=== PATIENT | female | born 2005 | race Two or more races ===

== ENCOUNTER 2025-04-14 02:57 | Emergency (ER) | payer MEDICAID, SELFPAY ==
[2025-04-14 02:59] VITALS: PULSE 92; RESP 18; O2SAT 99
[2025-04-14 03:18] VITALS: BP 100/64; PULSE 88; RESP 19; TEMP 36.6; O2SAT 100; BMI 21.6
--- NOTE | 2025-04-14 03:29 | XR_ITS ---
Examination: CT abdomen and pelvis without contrast. Coronal 3-D reconstructions. Sagittal 2-D reconstructions. Date and time of exam: April 14, 2025 at 1649 hours, comparison June 25, 2021 INDICATION: Abdominal pain diarrhea beginning 2 days ago CTDI: vol (mGy): 5.99 DLP: (mGycm): 284 Technique: Axial images of the abdomen have been obtained, 3 mm slice thickness Intravenous contrast material has not been administered. Low dose protocols were performed. One or more of the following dose reduction techniques were used; automated exposure control, adjustment of the mA and/or KV according to patient size, use of iterative reconstruction technique. Findings: No liver or splenic lesion No gallstones No pancreatic mass No renal or ureteral calculi, no hydronephrosis Aorta normal size No bowel obstruction Absent appendix No diverticulitis Prominent right adnexal region including 18 mm cystic mass No definite uterine mass Contracted urinary bladder Osseous structures intact IMPRESSION: Recommend pelvic sonography to assess prominent right adnexa
--- NOTE | 2025-04-14 03:30 | PD.EDRME ---
Rapid Medical Screening Exam E Arrival date/time: 04/14/25 02:57 This is a case of 19-year-old female with no medical history came in in the emergency room due to left-sided abdominal pain radiating to the left flank with nausea vomiting for 2 days worsening of the symptoms thus patient decided to start consult her in the emergency room Chief Complaint: Abdominal Pain Time Seen by Provider: 04/14/25 03:29 Vital signs: Vital Signs Temperature 97.8 F 04/14/25 03:18 Pulse Rate 88 04/14/25 03:18 Respiratory Rate 19 04/14/25 03:18 Blood Pressure 100/64 04/14/25 03:18 Pulse Oximetry (%) 100 04/14/25 03:18 Oxygen Delivery Method Room Air 04/14/25 03:18 Exam: Moderate tenderness on the left lower abdomen and left flank no guarding or rebound no rigidity Clinical Impression: Abdominal pain
[2025-04-14 03:59] LABS: Basophils # (Auto) 0.0 Thou/mm3 (0.0-0.2); Basophils % (Auto) 0 % (0-2.5); Eosinophils # (Auto) 0.1 Thou/mm3 (0.0-0.5); Eosinophils % (Auto) 1 % (0-10); Hematocrit 33.1 % (36.0-46.0); Hemoglobin 11.7 g/dL (12.0-16.0); Immature Granulocytes Auto 0.04 Thou/mm3 (0.00-0.00); Lymphocytes # (Auto) 3.5 Thou/mm3 (1.0-5.0); Lymphocytes % (Auto) 35 % (10-50); Mean Corpuscular HGB Conc 35.3 g/dl (31.0-37.0); Mean Corpuscular Hemoglobin 30.1 pg (25.0-35.0); Mean Corpuscular Volume 85 fL (80-100); Monocytes # (Auto) 0.8 Thou/mm3 (0.0-0.8); Monocytes % (Auto) 8 % (0-12); Neutrophils # (Auto) 5.6 Thou/mm3 (1.8-7.7); Neutrophils % (Auto) 56 % (37-80); Nucleated Red Blood Cell # 0.00 Thou/mm3 (0.00-0.00); Nucleated Red Blood Cell % 0 /100 WBC (0); Platelet Count 292 Thou/mm3 (140-440); RDW Standard Deviation 36.2 fL (36.4-46.3); Red Blood Count 3.89 Miln/mm3 (4.00-5.20); White Blood Count 10.0 Thou/mm3 (4.5-11.0)
[2025-04-14 04:11] LABS: Collection Type, Urine Clean Catch
[2025-04-14 04:17] LABS: HCG Qualitative,Urine Negative
[2025-04-14 04:21] LABS: Bacteria,Urine Rare; Bilirubin,Urine Negative (Negative); Blood,Urine Negative (Negative); Clarity,Urine Clear (Clear/Hazy); Color,Urine Yellow (Lt Yel-Yel); Glucose, Urine Negative (Negative); Ketones,Urine Negative (Negative); Leukocyte Esterase,Urine Negative (Negative); Nitrite,Urine Negative (Negative); PH,Urine 5.5 (5.0-7.0); Protein,Urine 1+ (Neg - Trace); RBC,Urine 4 /hpf (0-3); Specific Gravity,Urine 1.029 (1.001-1.035); Squamous Epithelial Cell,Urine 12 /hpf (0-5); Urobilinogen,Urine Negative mg/dL (0.0-1.0); WBC,Urine 5 /hpf (0-5)
[2025-04-14 04:24] LABS: Alanine Aminotransferase 37 U/L (10-49); Albumin, Serum 4.5 gm/dL (3.5-5.0); Albumin/Globulin Ratio 1.6 (1.2-2.2); Alkaline Phosphatase 86 U/L (46-116); Anion Gap 11 (7-16); Aspartate Amino Transferase 22 U/L (0-34); BUN/Creatinine Ratio 13 Ratio (12-20); Bilirubin,Total 0.4 mg/dL (0.3-1.2); Blood Urea Nitrogen 9 mg/dL (9-23); Calcium 9.1 mg/dL (8.3-10.6); Calcium (Corrected) 9.1 mg/dL (8.5-10.1); Carbon Dioxide 24.3 mMol/L (20.0-31.0); Chloride 105 mMol/L (98-107); Creatinine (Component) 0.7 mg/dL (0.6-1.3); Estimated Creatinine Clearance 106.9 mL/min (>60); Globulin 2.9 gm/dL (2.3-3.5); Glucose 104 mg/dL (74-106); Lipase 28 U/L (12-53); Osmolality,Calculated 278 (275-295); Potassium 3.7 mMol/L (3.4-5.1); Sodium 140 mMol/L (136-145); Total Protein 7.4 gm/dL (5.7-8.2); eGFR > 60 See Note
--- NOTE | 2025-04-14 05:30 | PRELIM_ITS ---
CT scan of the abdomen and pelvis without intravenous contrast (axial sections with sagittal and coronal reformats) April 14, 2025 0449 hours Clinical History: abd pain Comparison: None available at the time of this report. Findings: The lung bases are clear. The liver, gallbladder, pancreas, spleen, kidneys and adrenals are unremarkable on this noncontrast study. No evidence of bowel obstruction. The appendix is surgically absent there is no mesenteric or retroperitoneal adenopathy. The urinary bladder is nondistended, limited evaluation. There is no free fluid or free air. The osseous structures are unremarkable. Prominent right adnexa. Impression: Prominent right adnexa. Consider correlation with pelvic ultrasound. No evidence of kidney or ureteral stones. Report Electronically Signed By: Sal Barahona 04/14/2025 5:29:46 AM [EST]
--- NOTE | 2025-04-14 06:35 | EDNOTE_ITS ---
ED Abdominal Pain RME/HPI General Chief Complaint: Abdominal Pain Stated complaint: ABD PAIN WITH DIARRHEA Time seen by provider: 04/14/25 03:29 Arrival date/time: 04/14/25 02:57 RME / HPI RME / HPI narrative: 04/14/25 02:57 This is a case of 19-year-old female with no medical history came in in the emergency room due to left-sided abdominal pain radiating to the left flank with nausea vomiting for 2 days worsening of the symptoms thus patient decided to start consult her in the emergency room Exam: Moderate tenderness on the left lower abdomen and left flank no guarding or rebound no rigidity Impression: Abdominal pain Related Data Previous Rx's ?Medication ?Instructions ?Recorded acetaminophen 160 mg/5 mL oral 320 mg (10 mL) PO Q6H # 118 mL 06/26/21 liquid acetaminophen 300 mg-codeine 30 12.5 ml PO TID PRN terry n #150 mL 04/14/25 mg/12.5 mL (12.5 mL) oral solution Allergies Allergy/AdvReac Type Severity Reaction Status Date / Time No Known Allergies Allergy Verified 06/25/21 10:44 Review of Systems Review of Systems Systems Reviewed: All systems reviewed, normal except as documented ED Exam Narrative Physical exam: See MDM for physical exam documentation. Course Quality Measures none Orders Category Date Time Status CT abdomen pelvis wo con Stat Exams 04/14/25 03:29 Completed CBC Stat Lab 04/14/25 03:48 Completed Comprehensive Metabolic Panel Stat Lab 04/14/25 03:48 Completed HCG Qualitative,Urine Stat Lab 04/14/25 03:33 Completed Lipase Stat Lab 04/14/25 03:48 Completed Urinalysis Stat Lab 04/14/25 03:33 Completed Vital Signs Vital signs: Vital Signs Temperature 97.8 F 04/14/25 03:18 Pulse Rate 88 04/14/25 03:18 Respiratory Rate 19 04/14/25 03:18 Blood Pressure 100/64 04/14/25 03:18 Pulse Oximetry (%) 100 04/14/25 03:18 Oxygen Delivery Method Room Air 04/14/25 03:18 Abdominal Pain MDM MDM Narrative [facility] Narrative:: This section includes all my notes and documentations, including HPI, PE, and ED course. Dudley Nolasco MD HPI: 19-year-old female here with several days of left-sided pelvic pain. No nausea or vomiting. No fever or chills. No urinary symptoms. No history of abdominal surgery. No other complaints. ROS: All negative except as documented in HPI. Physical Exam: General: Alert and oriented. No acute distress when remaining still. Eyes: Conjunctivae and lids clear. ENT: No nasal congestion. Neck: Supple. Heart: RRR. Lungs: No respiratory distress. Good air movement. No rhonchi, wheezing, rales. Abdomen: Soft and nontender. Normal bowel sounds. No distension. No rebound or guarding. Back: No CVA tenderness. Skin: Warm and dry. Neuro: Alert and oriented X 3. I reviewed all diagnostic test results: My review of the abdominal CT report is prominent right adnexal region. Blood tests and urine tests unremarkable. At this point, diagnoses include: Pelvic pain due to ovarian cyst Treatment here included: None Recommended supportive care and more outpatient workup. Based on my best medical judgment, made decision no further evaluation or treatment indicated at this time. Patient understands and agrees to the discharge instructions customized and printed, see below. Discharge instructions from Dr. Nolasco: -- After extensive evaluation, there is no emergency such as appendicitis needing urgent surgery. -- Your pain is most likely from an ovarian cyst that ruptured. -- In young females, it is normal to have ovarian cysts (sacs of fluid) that come and go depending on the menstruation.? If a cyst ruptures, it can cause severe pain until your body reabsorbs the fluid. -- Apply ice or heat if helpful.? Ibuprofen 400 mg every 6-8 hours today and tomorrow to decrease inflammation then as needed. Liquid codeine for severe pain. -- See a private doctor on 04/19/25 if not completely better. Ask for a referral to see a tool salvage worker and pelvic ultrasound to make sure t here is no other serious underlying conditions. -- Seek immediate medical care with worsening, fever, or with any concerns. Dudley Nolasco MD Patient data External records reviewed:: [facility] previous records Clinical information provided by:: patient and parent Social determinants that could affect healthcare access:: none Patient has the following chronic illnesses:: None How is presenting disease/condition affected by chronic disease/condition?: no chronic disease Evaluation data The following diagnostics were reviewed and interpreted by me:: lab results and radiology exam(s) Lab and/or radiology exams considered but not ordered:: None Interpretation Summary: I reviewed all diagnostic test results: My review of the abdominal CT report is prominent right adnexal region. Blood tests and urine tests unremarkable. Medications / Prescriptions Medications or Prescriptions considered but not ordered:: None Medication administrations:: None Consultations Consultation(s) initiated? (list below): No Diagnosis Differential diagnosis abdominal pain: acute appendicitis, calculus of kidney, constipation, diverticulitis, endometriosis, gastroenteritis, pancreatitis and small bowel obstruction Most likely diagnosis given after review of the tests above:: With no condition needing emergent intervention, there was no indication for admission. Admission Indicated Admission indicated?: not indicated Admission Request Was there a request for admission?: No Disposition Plan Disposition Plan: Discharge Discharge Attestation Discharge Attestation: The patient and all family members were given an opportunity to ask questions and understood the discharge instructions. Discharge instructions specifically effects, indications for sooner follow up or return to the emergency department, and the expected course of current diagnosis. Patient condition: Stable Discharge Plan Plan Patient Disposition: HOME (Self Care) Prescriptions/Referrals Prescriptions/Med Rec: New acetaminophen-codeine 300 mg-30 mg /12.5 mL solution 12.5 ml PO TID PRN (Reason: pain) Qty: 150 0RF No Action acetaminophen 160 mg/5 mL liquid 320 mg PO Q6H Qty: 118 0RF Referrals: No Primary/Family,Physician [Primary Care Provider] - In 1 week Problem List Clinical Impression: Pelvic pain Patient/Caregiver Discharge Instructions Discharge Activity: activity as tolerated Education Materials: ED Ovarian Cyst Additional Instructions: Discharge instructions from Dr. Nolasco: -- After extensive evaluation, there is no emergency such as appendicitis needing urgent surgery. -- Your pain is most likely from an ovarian cyst that ruptured. -- In young females, it is normal to have ovarian cysts (sacs of fluid) that come and go depending on the menstruation.? If a cyst ruptures, it can cause severe pain until your body reabsorbs the fluid. -- Apply ice or heat if helpful.? Ibuprofen 400 mg every 6-8 hours today and tomorrow to decrease inflammation then as needed. Liquid codeine for severe pain. -- See a private doctor on 04/19/25 if not completely better. Ask for a referral to see a tool salvage worker and pelvic ultrasound to make sure there is no other serious underlying conditions. -- Seek immediate medical care with worsening, fever, or with any concerns. Print Language: Lithuanian Stand Alone Forms: Carole Award Info., Patient Portal Info Letter
== END 2025-04-14 07:01 | disposition home or self-care (01) ==
PROVIDERS: Nurse Practitioner Family; Emergency Provider Emergency Medicine
DX: N83.201 Unspecified ovarian cyst, right side (principal)
CPT/HCPCS: 36415; 74176; 80053; 81001; 81025; 83690; 85025; 99283